=== PATIENT | female | born 1975 | race African-American/Black ===

== ENCOUNTER 2023-12-29 14:22 | Inpatient (IN) | payer OTHER ==
[2023-12-29 16:56] VITALS: BMI 20.7
[2023-12-29] MEDS ORDERED: NICOTINE POLACRILEX 2 MG GUM BUC PRN (20:35)
[2023-12-29] MEDS ORDERED: DICYCLOMINE HCL 10 MG CAPSULE PO PRN (20:35)
[2023-12-29] MEDS ORDERED: BISMUTH SUBSALICYLATE 524 MG/30 ML PO PRN (20:35)
[2023-12-29] MEDS ORDERED: guaiFENesin 600 MG TABLET.ER (FP) PO PRN (20:35)
[2023-12-29] MEDS ORDERED: BENZOCAINE/MENTHOL (CHLORASEPTIC ) LOZENGE MM PRN (20:35)
[2023-12-29] MEDS ORDERED: POLYETHYLENE GLYCOL (HEALTHYLAX) 3350 17 GM PACKET PO PRN (20:35)
[2023-12-29] MEDS ORDERED: LOPERAMIDE HCL 2 MG CAPSULE PO PRN (20:35)
[2023-12-29] MEDS ORDERED: NALOXONE HCL 0.4 MG/ML VIAL IM PRN (20:35)
[2023-12-29] MEDS ORDERED: MAG HYDROX/AL HYDROX/SIMETH 30 ML UNIT-DOSE CUP PO PRN (20:35)
[2023-12-29] MEDS ORDERED: BENZONATATE 200 MG CAPSULE PO PRN (20:35)
[2023-12-29] MEDS ORDERED: MAGNESIUM HYDROX 2400MG/30ML ORAL SUSPENSION 30 ML CUP PO PRN (20:35)
[2023-12-29] MEDS ORDERED: ACETAMINOPHEN 325 MG TABLET (FP) PO PRN (20:35)
[2023-12-29] MEDS ORDERED: NALOXONE (NARCAN) HCL 4 MG/0.1 ML SPRAY NS PRN (20:35)
[2023-12-29] MEDS: INSULIN ASPART SLIDING SCALE (NOVOLOG) 1 VIAL SQ SCH (21:36)
[2023-12-29] MEDS ORDERED: INSULIN (NOVOLOG) ASPART 100 UNITS/ML 10ML VIAL ONE (21:39)
[2023-12-29] MEDS: MELATONIN 5 MG TABLETS PO SCH (22:18)
[2023-12-29] MEDS: THIAMINE 100 MG TABLET PO SCH (22:18)
[2023-12-29] MEDS: hydrOXYzine PAMOATE 25 MG CAPSULE (FP) PO PRN (22:19)
[2023-12-29] MEDS: METHOCARBAMOL 500 MG TABLET PO PRN (22:20)
[2023-12-29] MEDS: IBUPROFEN 400 MG TABLET (FP) PO PRN (22:28)
[2023-12-30] MEDS: PRENATAL VITAMINS W/ FOLIC ACID TABLET (FP) PO SCH (10:37)
[2023-12-30] MEDS: NICOTINE 14 MG/24 HOURS TOPICAL PATCH TD SCH (10:37)
[2023-12-30] MEDS: diazePAM 5 MG TABLET PO SCH (10:39)
[2023-12-30] MEDS: diazePAM 5 MG TABLET PO PRN (14:59)
[2023-12-30] MEDS: ONDANSETRON *ODT* 4 MG TABLET SL PRN (15:00)
[2023-12-30 15:57] LABS: HEMATOCRIT 39.5 % (32.4-45.2); HEMOGLOBIN 13.1 GM/dL (10.7-15.3); MCH 28.3 pg (25.7-33.7); MCHC 33.1 g/dl (32.0-36.0); MEAN CELL VOLUME 85.6 fl (80-96); MEAN PLT VOLUME 9.6 fl (7.5-11.1); PLATELET COUNT 204 10^3/uL (134-434); RBC 4.61 M/mm3 (3.60-5.2); RDW 13.7 % (11.6-15.6); WHITE BLOOD COUNT 3.9 K/mm3 (4.0-10.0)
[2023-12-30 16:06] LABS: CHLORIDE 104 mmol/L (98-107); SODIUM 139 mmol/L (136-145)
[2023-12-30 16:18] LABS: SGPT/ALT 19 U/L (13-61)
[2023-12-30 16:21] LABS: CALCIUM 9.2 mg/dL (8.5-10.1)
[2023-12-30 16:22] LABS: ANION GAP 6 mmol/L (4-13); BLOOD UREA NITROGEN 20.6 mg/dL (7-18); CO2 30 mmol/L (21-32); GLUCOSE,RANDOM 144 mg/dL (74-106)
[2023-12-30 16:24] LABS: SGOT/AST 23 U/L (15-37)
[2023-12-30 16:25] LABS: CREATININE 0.9 mg/dL (0.55-1.3)
[2023-12-30 16:26] LABS: BILIRUBIN,TOTAL 0.3 mg/dL (0.2-1); TOT PROT 6.5 g/dl (6.4-8.2)
[2023-12-30 16:27] LABS: ALK PHOS 164 U/L (45-117)
[2023-12-30] MEDS ORDERED: INSULIN (NOVOLOG) ASPART 100 UNITS/ML 10ML VIAL ONE (17:19)
[2023-12-31] MEDS: LISINOPRIL 10 MG TABLET PO SCH (10:21)
[2023-12-31] MEDS: IBUPROFEN 600 MG TABLET (FP) PO PRN (10:33)
[2023-12-31] MEDS: INSULIN ASPART SLIDING SCALE (NOVOLOG) 1 VIAL SQ SCH (11:46)
[2024-01-01] MEDS ORDERED: INSULIN (NOVOLOG) ASPART 100 UNITS/ML 10ML VIAL ONE ×3 (06:43→23:30)
[2024-01-01] MEDS: diazePAM 5 MG TABLET PO SCH (06:49)
[2024-01-02] MEDS: diazePAM 5 MG TABLET PO SCH (06:02)
[2024-01-02] MEDS ORDERED: INSULIN (NOVOLOG) ASPART 100 UNITS/ML 10ML VIAL ONE (07:04)
[2024-01-02 09:14] VITALS: BP 115/79; PULSE 94; RESP 18; TEMP 98.4
[2024-01-03] MEDS ORDERED: diazePAM 5 MG TABLET PO ONE (06:00)
== END 2024-01-02 10:36 | disposition home or self-care (01) | DRG 774 ==
LOC: YASAS 14:22 → Y6N 21:08
PROVIDERS: ADMIT Allergy & Immunology; ATTEND Surgery
PROC: HZ2ZZZZ Detoxification Services for Substance Abuse Treatment (ICD-10-PCS; principal; 2023-12-29)
DX: F10.230 Alcohol dependence with withdrawal, uncomplicated (principal); F14.20 Cocaine dependence, uncomplicated; F17.210 Nicotine dependence, cigarettes, uncomplicated; F20.9 Schizophrenia, unspecified; F31.9 Bipolar disorder, unspecified; I10 Essential (primary) hypertension; E78.5 Hyperlipidemia, unspecified; E11.9 Type 2 diabetes mellitus without complications; Z79.4 Long term (current) use of insulin; Z59.01 Sheltered homelessness
CPT/HCPCS: 36415; 80053; 80305; 80307; 81025; 82962; 85027; 86780; 93005; 93010; Q0162

== ENCOUNTER 2024-02-01 12:48 | Inpatient (IN) | payer OTHER ==
[2024-02-01 14:05] VITALS: BMI 21.4
[2024-02-01] MEDS ORDERED: IBUPROFEN 600 MG TABLET (FP) PO PRN (14:38)
[2024-02-01] MEDS ORDERED: POLYETHYLENE GLYCOL (HEALTHYLAX) 3350 17 GM PACKET PO PRN (14:38)
[2024-02-01] MEDS ORDERED: NALOXONE (NARCAN) HCL 4 MG/0.1 ML SPRAY NS PRN (14:38)
[2024-02-01] MEDS ORDERED: BENZOCAINE/MENTHOL (CHLORASEPTIC ) LOZENGE MM PRN (14:38)
[2024-02-01] MEDS ORDERED: MAGNESIUM HYDROX 2400MG/30ML ORAL SUSPENSION 30 ML CUP PO PRN (14:38)
[2024-02-01] MEDS ORDERED: MAG HYDROX/AL HYDROX/SIMETH 30 ML UNIT-DOSE CUP PO PRN (14:38)
[2024-02-01] MEDS ORDERED: guaiFENesin 600 MG TABLET.ER (FP) PO PRN (14:38)
[2024-02-01] MEDS ORDERED: hydrOXYzine PAMOATE 25 MG CAPSULE (FP) PO PRN (14:38)
[2024-02-01] MEDS ORDERED: ACETAMINOPHEN 325 MG TABLET (FP) PO PRN (14:38)
[2024-02-01] MEDS ORDERED: IBUPROFEN 400 MG TABLET (FP) PO PRN (14:38)
[2024-02-01] MEDS ORDERED: LOPERAMIDE HCL 2 MG CAPSULE PO PRN (14:38)
[2024-02-01] MEDS ORDERED: METHOCARBAMOL 500 MG TABLET PO PRN (14:38)
[2024-02-01] MEDS ORDERED: ONDANSETRON *ODT* 4 MG TABLET SL PRN (14:38)
[2024-02-01] MEDS ORDERED: BISMUTH SUBSALICYLATE 262 MG/15 ML BTL PO PRN (14:38)
[2024-02-01] MEDS ORDERED: DICYCLOMINE HCL 10 MG CAPSULE PO PRN (14:38)
[2024-02-01] MEDS ORDERED: BENZONATATE 200 MG CAPSULE PO PRN (14:38)
[2024-02-01] MEDS ORDERED: TRIMETHOBENZAMIDE HCL 200MG/2ML INJ IM ONE (14:57)
[2024-02-01] MEDS: TRIMETHOBENZAMIDE HCL 200MG/2ML INJ IM ONE (15:02)
[2024-02-01] MEDS: LORazepam 2 MG TABLET PO SCH (17:25)
[2024-02-01] MEDS: INSULIN ASPART SLIDING SCALE (NOVOLOG) 1 VIAL SQ SCH (17:28)
[2024-02-01] MEDS ORDERED: INSULIN (NOVOLOG) ASPART 100 UNITS/ML 10ML VIAL SQ SCH (17:30)
[2024-02-01] MEDS: PRENATAL VITAMINS W/ FOLIC ACID TABLET (FP) PO SCH (18:27)
[2024-02-01] MEDS: THIAMINE 100 MG TABLET PO SCH (22:28)
[2024-02-01] MEDS: MELATONIN 5 MG TABLETS PO SCH (22:28)
[2024-02-01] MEDS ORDERED: INSULIN (NOVOLOG) ASPART 100 UNITS/ML 10ML VIAL ONE (22:29)
[2024-02-01] MEDS: LORazepam 1 MG TABLET PO PRN (22:35)
[2024-02-01] MEDS: INSULIN (NOVOLOG) ASPART 100 UNITS/ML 10ML VIAL SQ ONE (22:45)
[2024-02-02] MEDS: HALOPERIDOL 5 MG TABLET PO SCH (10:37)
[2024-02-02] MEDS: DIVALPROEX SODIUM 500 MG TABLET E.C. PO SCH (10:37)
[2024-02-02] MEDS: LISINOPRIL 10 MG TABLET PO SCH (10:38)
[2024-02-02] MEDS: risperiDONE 1 MG TABLET PO SCH (10:38)
[2024-02-02] MEDS ORDERED: INSULIN (NOVOLOG) ASPART 100 UNITS/ML 10ML VIAL ONE (16:55)
[2024-02-02] MEDS: LORazepam 1 MG TABLET PO SCH (17:17)
[2024-02-02] MEDS: INSULIN ASPART SLIDING SCALE (NOVOLOG) 1 VIAL SQ SCH (23:40)
[2024-02-03] MEDS: LORazepam 1 MG TABLET PO SCH (06:18)
[2024-02-03] MEDS ORDERED: INSULIN (NOVOLOG) ASPART 100 UNITS/ML 10ML VIAL ONE ×2 (16:55→23:23)
[2024-02-03 17:58] VITALS: RESP 18; TEMP 98.4
[2024-02-03 22:12] VITALS: BP 142/97; PULSE 91
[2024-02-04] MEDS ORDERED: LORazepam 0.5 MG TABLET PO PRN
[2024-02-04] MEDS: LORazepam 0.5 MG TABLET PO SCH (05:45)
[2024-02-04] MEDS: NALOXONE (NYS OPIOID OVERDOSE PROGRAM) 4 MG/0.1 ML SPRAY NS PRN (09:01)
[2024-02-05] MEDS ORDERED: LORazepam 0.5 MG TABLET PO ONE (05:00)
== END 2024-02-04 08:55 | disposition home or self-care (01) | DRG 774 ==
LOC: YASAS 12:48 → Y6N 16:29
PROVIDERS: ADMIT Allergy & Immunology; ATTEND Surgery
PROC: HZ2ZZZZ Detoxification Services for Substance Abuse Treatment (ICD-10-PCS; principal; 2024-02-01)
DX: F10.230 Alcohol dependence with withdrawal, uncomplicated (principal); F14.20 Cocaine dependence, uncomplicated; F16.20 Hallucinogen dependence, uncomplicated; F17.210 Nicotine dependence, cigarettes, uncomplicated; F25.9 Schizoaffective disorder, unspecified; F19.282 Other psychoactive substance dependence with psychoactive substance-induced sleep disorder; F19.24 Other psychoactive substance dependence with psychoactive substance-induced mood disorder; I10 Essential (primary) hypertension; E78.5 Hyperlipidemia, unspecified; E11.9 Type 2 diabetes mellitus without complications; Z79.4 Long term (current) use of insulin; M54.50 Low back pain, unspecified; G89.29 Other chronic pain; Z59.01 Sheltered homelessness; Z56.0 Unemployment, unspecified
CPT/HCPCS: 80305; 80307; 81025; 82962; 93005; 93010

== ENCOUNTER 2024-02-29 12:25 | Inpatient (IN) | payer OTHER ==
[2024-02-29 13:19] VITALS: BMI 21.2
[2024-02-29] MEDS ORDERED: hydrOXYzine PAMOATE 25 MG CAPSULE (FP) PO PRN (13:46)
[2024-02-29] MEDS ORDERED: METHOCARBAMOL 500 MG TABLET PO PRN (13:46)
[2024-02-29] MEDS ORDERED: BENZONATATE 200 MG CAPSULE PO PRN (13:46)
[2024-02-29] MEDS ORDERED: IBUPROFEN 400 MG TABLET (FP) PO PRN (13:46)
[2024-02-29] MEDS ORDERED: MAGNESIUM HYDROX 2400MG/30ML ORAL SUSPENSION 30 ML CUP PO PRN (13:46)
[2024-02-29] MEDS ORDERED: IBUPROFEN 600 MG TABLET (FP) PO PRN (13:46)
[2024-02-29] MEDS ORDERED: NICOTINE POLACRILEX 2 MG GUM BUC PRN (13:46)
[2024-02-29] MEDS ORDERED: POLYETHYLENE GLYCOL (HEALTHYLAX) 3350 17 GM PACKET PO PRN (13:46)
[2024-02-29] MEDS ORDERED: MAG HYDROX/AL HYDROX/SIMETH 30 ML UNIT-DOSE CUP PO PRN (13:46)
[2024-02-29] MEDS ORDERED: guaiFENesin 600 MG TABLET.ER (FP) PO PRN (13:46)
[2024-02-29] MEDS ORDERED: BENZOCAINE/MENTHOL (CHLORASEPTIC ) LOZENGE MM PRN (13:46)
[2024-02-29] MEDS ORDERED: ACETAMINOPHEN 325 MG TABLET (FP) PO PRN (13:46)
[2024-02-29] MEDS ORDERED: NICOTINE POLACRILEX 2 MG LOZENGE BC PRN (13:46)
[2024-02-29] MEDS ORDERED: LOPERAMIDE HCL 2 MG CAPSULE PO PRN (13:46)
[2024-02-29] MEDS ORDERED: ONDANSETRON *ODT* 4 MG TABLET SL PRN (15:30)
[2024-02-29] MEDS: INSULIN ASPART SLIDING SCALE (NOVOLOG) 1 VIAL SQ SCH (17:13)
[2024-02-29] MEDS: TRIMETHOBENZAMIDE HCL 200MG/2ML INJ IM ONE (17:24)
[2024-02-29] MEDS: MELATONIN 5 MG TABLETS PO SCH (23:05)
[2024-02-29] MEDS: THIAMINE 100 MG TABLET PO SCH (23:05)
[2024-03-01] MEDS: PRENATAL VITAMINS W/ FOLIC ACID TABLET (FP) PO SCH (10:38)
[2024-03-01] MEDS: FLU VACCINE (FLULAVAL) PF 45 MCG/0.5 ML SYRINGE 2024-2025 IM ONE (14:53)
[2024-03-01 16:27] VITALS: RESP 18
[2024-03-01] MEDS: BENZTROPINE MESYLATE 1 MG TABLET PO SCH (22:01)
[2024-03-01] MEDS: HALOPERIDOL 5 MG TABLET PO SCH (22:02)
[2024-03-01] MEDS: DIVALPROEX SODIUM 250 MG TABLET E.C. PO SCH (22:02)
[2024-03-02] MEDS ORDERED: INSULIN (NOVOLOG) ASPART 100 UNITS/ML 10ML VIAL ONE ×2 (06:44→12:28)
[2024-03-02 07:07] VITALS: BP 135/84; PULSE 74; TEMP 97.6
[2024-03-02 12:37] LABS: SYPHILIS W/ RPR CONF NON-REACTIVE (NONREACTIVE)
[2024-03-02 13:06] LABS: HIV INTERPRETATION NEGATIVE (NEGATIVE)
[2024-03-02] MEDS: NALOXONE (NYS OPIOID OVERDOSE PROGRAM) 4 MG/0.1 ML SPRAY NS SCH (14:23)
== END 2024-03-02 14:15 | disposition home or self-care (01) | DRG 772 ==
LOC: YASAS 12:25 → Y3NR 17:11 → Y5N 03-01 11:42
PROVIDERS: ADMIT Psychiatry & Neurology Pain Medicine; ATTEND Psychiatry & Neurology Pain Medicine
PROC: HZ42ZZZ Group Counseling for Substance Abuse Treatment, Cognitive-Behavioral (ICD-10-PCS; principal; 2024-02-29)
DX: F10.20 Alcohol dependence, uncomplicated (principal); F14.20 Cocaine dependence, uncomplicated; F17.210 Nicotine dependence, cigarettes, uncomplicated; F25.9 Schizoaffective disorder, unspecified; F31.9 Bipolar disorder, unspecified; I10 Essential (primary) hypertension; E78.5 Hyperlipidemia, unspecified; E11.9 Type 2 diabetes mellitus without complications; Z79.4 Long term (current) use of insulin; M54.50 Low back pain, unspecified; G89.29 Other chronic pain; Z59.01 Sheltered homelessness
CPT/HCPCS: 36415; 80164; 80305; 80307; 81025; 82962; 86780; 86803; 87389; 87491; 87591; 87661; 87811; 90656; G0008

== ENCOUNTER 2024-04-18 12:55 | Inpatient (IN) | payer OTHER ==
[2024-04-18 15:01] VITALS: BMI 23.6
[2024-04-18] MEDS ORDERED: POLYETHYLENE GLYCOL (HEALTHYLAX) 3350 17 GM PACKET PO PRN (15:20)
[2024-04-18] MEDS ORDERED: NALOXONE (NARCAN) HCL 4 MG/0.1 ML SPRAY NS PRN (15:20)
[2024-04-18] MEDS ORDERED: ONDANSETRON *ODT* 4 MG TABLET SL PRN (15:20)
[2024-04-18] MEDS ORDERED: MAG HYDROX/AL HYDROX/SIMETH 30 ML UNIT-DOSE CUP PO PRN (15:20)
[2024-04-18] MEDS ORDERED: DICYCLOMINE HCL 10 MG CAPSULE PO PRN (15:20)
[2024-04-18] MEDS ORDERED: IBUPROFEN 400 MG TABLET (FP) PO PRN (15:20)
[2024-04-18] MEDS ORDERED: LOPERAMIDE HCL 2 MG CAPSULE PO PRN (15:20)
[2024-04-18] MEDS ORDERED: BENZONATATE 200 MG CAPSULE PO PRN (15:20)
[2024-04-18] MEDS ORDERED: BISMUTH SUBSALICYLATE 524 MG/30 ML PO PRN (15:20)
[2024-04-18] MEDS ORDERED: MAGNESIUM HYDROX 2400MG/30ML ORAL SUSPENSION 30 ML CUP PO PRN (15:20)
[2024-04-18] MEDS ORDERED: BENZOCAINE/MENTHOL (CHLORASEPTIC ) LOZENGE MM PRN (15:20)
[2024-04-18] MEDS ORDERED: guaiFENesin 600 MG TABLET.ER (FP) PO PRN (15:20)
[2024-04-18] MEDS ORDERED: INSULIN (NOVOLOG) ASPART 100 UNITS/ML 10ML VIAL ONE (16:11)
[2024-04-18] MEDS: INSULIN ASPART SLIDING SCALE (NOVOLOG) 1 VIAL SQ SCH (16:15)
[2024-04-18] MEDS ORDERED: diazePAM 5 MG TABLET ONE (16:21)
[2024-04-18] MEDS ORDERED: IBUPROFEN 600 MG TABLET (FP) PO ONE (16:22)
[2024-04-18] MEDS: diazePAM 5 MG TABLET PO SCH (16:25)
[2024-04-18] MEDS: IBUPROFEN 600 MG TABLET (FP) PO PRN (16:27)
[2024-04-18] MEDS: DOXYCYCLINE HYCLATE 100 MG CAPSULE PO SCH (20:13)
[2024-04-18] MEDS: METHOCARBAMOL 500 MG TABLET PO PRN (22:23)
[2024-04-18] MEDS: MELATONIN 5 MG TABLETS PO SCH (22:23)
[2024-04-18] MEDS: THIAMINE 100 MG TABLET PO SCH (22:24)
[2024-04-19] MEDS ORDERED: HALOPERIDOL 5 MG TABLET PO PRN (10:10)
[2024-04-19] MEDS: LISINOPRIL 10 MG TABLET PO SCH (10:28)
[2024-04-19] MEDS: PRENATAL VITAMINS W/ FOLIC ACID TABLET (FP) PO SCH (10:28)
[2024-04-19] MEDS: FLU VACCINE (FLULAVAL) PF 45 MCG/0.5 ML SYRINGE 2024-2025 IM ONE (11:14)
[2024-04-19] MEDS: INSULIN ASPART SLIDING SCALE (NOVOLOG) 1 VIAL SQ SCH (17:00)
[2024-04-19] MEDS: DOXYCYCLINE HYCLATE 100 MG TABLET PO SCH (18:02)
[2024-04-19] MEDS: ACETAMINOPHEN 325 MG TABLET (FP) PO PRN (18:07)
[2024-04-19] MEDS: risperiDONE 1 MG TABLET PO SCH (22:55)
[2024-04-19] MEDS: BENZTROPINE MESYLATE 1 MG TABLET PO SCH (22:55)
[2024-04-19] MEDS: DIVALPROEX SODIUM 500 MG TABLET E.C. PO SCH (22:55)
[2024-04-20] MEDS: diazePAM 5 MG TABLET PO SCH (05:27)
[2024-04-20] MEDS: diazePAM 5 MG TABLET PO PRN (17:57)
[2024-04-20] MEDS: INSULIN (NOVOLOG) ASPART 100 UNITS/ML 10ML VIAL SQ ONE (18:43)
[2024-04-21] MEDS: diazePAM 5 MG TABLET PO SCH (06:10)
[2024-04-21 09:49] LABS: CHLORIDE 103 mmol/L (98-107); POTASSIUM 4.7 mmol/L (3.5-5.1); SODIUM 136 mmol/L (136-145)
[2024-04-21 09:57] LABS: HEMATOCRIT 38.8 % (32.4-45.2); HEMOGLOBIN 11.5 GM/dL (10.7-15.3); MCH 26.6 pg (25.7-33.7); MCHC 29.8 g/dl (32.0-36.0); MEAN CELL VOLUME 89.5 fl (80-96); MEAN PLT VOLUME 9.9 fl (7.5-11.1); PLATELET COUNT 167 10^3/uL (134-434); RBC 4.33 M/mm3 (3.60-5.2); WHITE BLOOD COUNT 4.4 K/mm3 (4.0-10.0)
[2024-04-21 10:28] LABS: ALBUMIN 2.4 g/dl (3.4-5.0); ANION GAP 11 mmol/L (4-13); BLOOD UREA NITROGEN 15.5 mg/dL (7-18); CO2 22 mmol/L (21-32)
[2024-04-21 10:31] LABS: SGOT/AST 21 U/L (15-37); SGPT/ALT 14 U/L (13-61)
[2024-04-21 10:32] LABS: BILIRUBIN,TOTAL 0.3 mg/dL (0.2-1); TOT PROT 5.8 g/dl (6.4-8.2)
[2024-04-21 10:33] LABS: ALK PHOS 166 U/L (45-117); GLUCOSE,RANDOM 476 mg/dL (74-106)
[2024-04-21 21:40] VITALS: PULSE 90
[2024-04-22] MEDS: hydrOXYzine PAMOATE 25 MG CAPSULE (FP) PO PRN (05:33)
[2024-04-22] MEDS: diazePAM 5 MG TABLET PO ONE (05:33)
[2024-04-22 05:57] VITALS: BP 170/100; RESP 17; TEMP 98.2
[2024-04-22] MEDS: NALOXONE (NYS OPIOID OVERDOSE PROGRAM) 4 MG/0.1 ML SPRAY NS SCH (09:00)
== END 2024-04-22 09:15 | disposition home or self-care (01) | DRG 774 ==
LOC: YASAS 12:55 → Y3N 16:15
PROVIDERS: ADMIT Allergy & Immunology; ATTEND Psychiatry & Neurology Pain Medicine
PROC: HZ2ZZZZ Detoxification Services for Substance Abuse Treatment (ICD-10-PCS; principal; 2024-04-18)
DX: F10.230 Alcohol dependence with withdrawal, uncomplicated (principal); F14.20 Cocaine dependence, uncomplicated; F19.24 Other psychoactive substance dependence with psychoactive substance-induced mood disorder; F31.9 Bipolar disorder, unspecified; F20.9 Schizophrenia, unspecified; I10 Essential (primary) hypertension; E78.2 Mixed hyperlipidemia; E11.59 Type 2 diabetes mellitus with other circulatory complications; Z56.0 Unemployment, unspecified; Z59.01 Sheltered homelessness
CPT/HCPCS: 36415; 80053; 80305; 80307; 81025; 82962; 85027; 93005; 93010

== ENCOUNTER 2024-05-06 15:27 | Inpatient (IN) | payer OTHER ==
[2024-05-06 16:04] VITALS: BMI 22.4
[2024-05-06] MEDS ORDERED: IBUPROFEN 600 MG TABLET (FP) PO PRN (16:58)
[2024-05-06] MEDS ORDERED: METHOCARBAMOL 500 MG TABLET PO PRN (16:58)
[2024-05-06] MEDS ORDERED: hydrOXYzine PAMOATE 25 MG CAPSULE (FP) PO PRN (16:58)
[2024-05-06] MEDS ORDERED: guaiFENesin 600 MG TABLET.ER (FP) PO PRN (16:58)
[2024-05-06] MEDS ORDERED: diazePAM 5 MG TABLET PO PRN (16:58)
[2024-05-06] MEDS ORDERED: DICYCLOMINE HCL 10 MG CAPSULE PO PRN (16:58)
[2024-05-06] MEDS ORDERED: IBUPROFEN 400 MG TABLET (FP) PO PRN (16:58)
[2024-05-06] MEDS ORDERED: MAG HYDROX/AL HYDROX/SIMETH 30 ML UNIT-DOSE CUP PO PRN (16:58)
[2024-05-06] MEDS ORDERED: POLYETHYLENE GLYCOL (HEALTHYLAX) 3350 17 GM PACKET PO PRN (16:58)
[2024-05-06] MEDS ORDERED: LOPERAMIDE HCL 2 MG CAPSULE PO PRN (16:58)
[2024-05-06] MEDS ORDERED: NALOXONE (NARCAN) HCL 4 MG/0.1 ML SPRAY NS PRN (16:58)
[2024-05-06] MEDS ORDERED: ACETAMINOPHEN 325 MG TABLET (FP) PO PRN (16:58)
[2024-05-06] MEDS ORDERED: BISMUTH SUBSALICYLATE 524 MG/30 ML PO PRN (16:58)
[2024-05-06] MEDS ORDERED: ONDANSETRON *ODT* 4 MG TABLET SL PRN (16:58)
[2024-05-06] MEDS ORDERED: BENZONATATE 200 MG CAPSULE PO PRN (16:58)
[2024-05-06] MEDS ORDERED: BENZOCAINE/MENTHOL (CHLORASEPTIC ) LOZENGE MM PRN (16:58)
[2024-05-06] MEDS ORDERED: MAGNESIUM HYDROX 2400MG/30ML ORAL SUSPENSION 30 ML CUP PO PRN (16:58)
[2024-05-06 21:22] VITALS: BP 125/77; PULSE 92; RESP 16; TEMP 98.4
[2024-05-06] MEDS: THIAMINE 100 MG TABLET PO SCH (22:40)
[2024-05-06] MEDS: MELATONIN 5 MG TABLETS PO SCH (22:41)
[2024-05-06] MEDS: diazePAM 5 MG TABLET PO SCH (23:40)
[2024-05-07] MEDS ORDERED: INSULIN (NOVOLOG) ASPART 100 UNITS/ML 10ML VIAL ONE (06:14)
[2024-05-07] MEDS: INSULIN ASPART SLIDING SCALE (NOVOLOG) 1 VIAL SQ SCH (06:16)
[2024-05-07] MEDS: PRENATAL VITAMINS W/ FOLIC ACID TABLET (FP) PO SCH (10:38)
[2024-05-07] MEDS: LISINOPRIL 10 MG TABLET PO SCH (10:38)
[2024-05-07] MEDS ORDERED: INSULIN ASPART SLIDING SCALE (NOVOLOG) 1 VIAL SQ SCH (11:00)
[2024-05-07] MEDS: NALOXONE (NYS OPIOID OVERDOSE PROGRAM) 4 MG/0.1 ML SPRAY NS SCH (15:01)
[2024-05-08] MEDS ORDERED: diazePAM 5 MG TABLET PO SCH (06:00)
[2024-05-09] MEDS ORDERED: diazePAM 5 MG TABLET PO SCH (06:00)
[2024-05-10] MEDS ORDERED: diazePAM 5 MG TABLET PO ONE (06:00)
== END 2024-05-07 12:50 | disposition home or self-care (01) | DRG 774 ==
LOC: YASAS 15:27 → Y6N 17:12
PROVIDERS: ADMIT Allergy & Immunology; ATTEND Allergy & Immunology
PROC: HZ2ZZZZ Detoxification Services for Substance Abuse Treatment (ICD-10-PCS; principal; 2024-05-06)
DX: F10.230 Alcohol dependence with withdrawal, uncomplicated (principal); F14.20 Cocaine dependence, uncomplicated; F16.20 Hallucinogen dependence, uncomplicated; F31.9 Bipolar disorder, unspecified; F25.0 Schizoaffective disorder, bipolar type; F19.282 Other psychoactive substance dependence with psychoactive substance-induced sleep disorder; F19.24 Other psychoactive substance dependence with psychoactive substance-induced mood disorder; I10 Essential (primary) hypertension; E11.59 Type 2 diabetes mellitus with other circulatory complications; Z79.4 Long term (current) use of insulin; M54.50 Low back pain, unspecified; G89.29 Other chronic pain; Z59.01 Sheltered homelessness
CPT/HCPCS: 80305; 81025; 82962